=== PATIENT | male | born 1965 | race Caucasian/White ===

== ENCOUNTER 2019-03-04 10:16 | Emergency (ER) | payer MEDICAID, OTHER ==
[~2019-03-04] VITALS: Ht 188 cm; Wt 93.0 kg
[2019-03-04 12:15] VITALS: BP 125/88
[2019-03-04] MEDS ORDERED: KETOROLAC TROMETH 60MG/2ML VIAL IM ONE (12:30)
== END 2019-03-04 13:21 | disposition home or self-care (01) ==
LOC: ER 10:21
DX: M25.572 Pain in left ankle and joints of left foot (principal); M25.532 Pain in left wrist; M19.90 Unspecified osteoarthritis, unspecified site
CPT/HCPCS: 96372; 99283; J1885